=== PATIENT | male | born 1965 | race Asian ===

== ENCOUNTER → 2018-06-24 | Outpatient (CLI) | payer MEDICAID ==
[~2018-06-24] VITALS: Ht 160 cm; Wt 101.2 kg
[~2018-06-24] MED LIST: ASPI81 PO; CILO100T PO; FURO40 PO; METF-960 PO; METO50 PO
[2018-06-24 10:20] VITALS: BP 120/71
[2018-06-24 12:39] LABS: ALBUMIN 2.7 g/dL (3.4-5.0); BILIRUBIN,TOTAL 0.2 mg/dL (0.1-1.0); CALCIUM, TOTAL 9.3 mg/dL (8.8-10.5); CREATININE 1.64 mg/dL (0.60-1.30); TOTAL PROTEIN, SERUM 7.1 g/dL (6.4-8.2)
[2018-06-24 12:53] LABS: HEMOGLOBIN A1C 6.4 % (4.5-6.2)
== END | disposition home or self-care (01) ==
LOC: HBOWC 10:09
PROVIDERS: ATTEND Nurse Practitioner Adult Health
DX: E11.621 Type 2 diabetes mellitus with foot ulcer (principal); L97.529 Non-pressure chronic ulcer of other part of left foot with unspecified severity; E11.52 Type 2 diabetes mellitus with diabetic peripheral angiopathy with gangrene
CPT/HCPCS: 83036; 87070; 87205

== ENCOUNTER → 2018-06-28 | Outpatient (CLI) | payer MEDICAID | END | disposition home or self-care (01) | LOC: RADPV 08:22 | PROVIDERS: ATTEND Nurse Practitioner Adult Health | DX: M77.32 Calcaneal spur, left foot (principal); E11.621 Type 2 diabetes mellitus with foot ulcer; E11.52 Type 2 diabetes mellitus with diabetic peripheral angiopathy with gangrene; L97.528 Non-pressure chronic ulcer of other part of left foot with other specified severity | CPT/HCPCS: 93925; 93970 ==

== ENCOUNTER → 2018-07-01 | Outpatient (CLI) | payer MEDICAID ==
[2018-07-01 10:23] VITALS: BP 123/73
== END | disposition home or self-care (01) ==
LOC: HBOWC 09:43
PROVIDERS: ATTEND Nurse Practitioner Adult Health
DX: E11.621 Type 2 diabetes mellitus with foot ulcer (principal); L97.522 Non-pressure chronic ulcer of other part of left foot with fat layer exposed; E11.52 Type 2 diabetes mellitus with diabetic peripheral angiopathy with gangrene; I96 Gangrene, not elsewhere classified; E11.40 Type 2 diabetes mellitus with diabetic neuropathy, unspecified; L60.2 Onychogryphosis; I11.0 Hypertensive heart disease with heart failure; I50.9 Heart failure, unspecified; I87.2 Venous insufficiency (chronic) (peripheral); L90.9 Atrophic disorder of skin, unspecified; I25.2 Old myocardial infarction; H54.62 Unqualified visual loss, left eye, normal vision right eye; Z86.73 Personal history of transient ischemic attack (TIA), and cerebral infarction without residual deficits; Z79.84 Long term (current) use of oral hypoglycemic drugs; Z79.82 Long term (current) use of aspirin
CPT/HCPCS: 97597

== ENCOUNTER → 2018-07-15 | Outpatient (CLI) | payer MEDICAID ==
[2018-07-15 13:17] VITALS: BP_SYST 105; BP_SYST 145; BP_DIAS 44; BP_DIAS 79
== END | disposition home or self-care (01) ==
LOC: HBOWC 10:25
PROVIDERS: ATTEND Nurse Practitioner Adult Health
DX: E11.621 Type 2 diabetes mellitus with foot ulcer (principal); L97.522 Non-pressure chronic ulcer of other part of left foot with fat layer exposed; I87.2 Venous insufficiency (chronic) (peripheral); E11.52 Type 2 diabetes mellitus with diabetic peripheral angiopathy with gangrene; I96 Gangrene, not elsewhere classified; E11.40 Type 2 diabetes mellitus with diabetic neuropathy, unspecified; L90.9 Atrophic disorder of skin, unspecified; L60.2 Onychogryphosis; I25.2 Old myocardial infarction; I11.0 Hypertensive heart disease with heart failure; I50.9 Heart failure, unspecified; H54.62 Unqualified visual loss, left eye, normal vision right eye; Z79.84 Long term (current) use of oral hypoglycemic drugs; Z79.82 Long term (current) use of aspirin; Z86.73 Personal history of transient ischemic attack (TIA), and cerebral infarction without residual deficits
CPT/HCPCS: 97597

== ENCOUNTER → 2018-07-22 | Outpatient (CLI) | payer MEDICAID ==
[~2018-07-22] MED LIST changes: +BACTDSB PO
[2018-07-22 11:07] VITALS: BP 130/79
== END | disposition home or self-care (01) ==
LOC: HBOWC 10:35
PROVIDERS: ATTEND Nurse Practitioner Adult Health
DX: E11.621 Type 2 diabetes mellitus with foot ulcer (principal); L97.522 Non-pressure chronic ulcer of other part of left foot with fat layer exposed; I87.2 Venous insufficiency (chronic) (peripheral); E11.52 Type 2 diabetes mellitus with diabetic peripheral angiopathy with gangrene; I96 Gangrene, not elsewhere classified; E11.40 Type 2 diabetes mellitus with diabetic neuropathy, unspecified; L90.9 Atrophic disorder of skin, unspecified; L60.2 Onychogryphosis; I25.2 Old myocardial infarction; I11.0 Hypertensive heart disease with heart failure; I50.9 Heart failure, unspecified; H54.62 Unqualified visual loss, left eye, normal vision right eye; Z79.84 Long term (current) use of oral hypoglycemic drugs; Z79.82 Long term (current) use of aspirin; Z86.73 Personal history of transient ischemic attack (TIA), and cerebral infarction without residual deficits
CPT/HCPCS: 87070; 87205; 97597

== ENCOUNTER 2020-07-02 10:26 | Emergency (ER) | payer MEDICAID ==
[~2020-07-02] VITALS: Ht 177.8 cm; Wt 104.6 kg
[~2020-07-02 10:26] MED LIST changes: +ASPI-1450 PO; -ASPI81 PO
[2020-07-02] MEDS ORDERED: IOVERSOL 350 MG/ML 100 ML VIAL ONE ×2 (10:53→11:11)
[2020-07-02] MEDS ORDERED: HydrALAZINE HCL 20 MG/ML VIAL ONE (10:56)
[2020-07-02 10:58] LABS: BASOPHILS % (AUTO) 1.3 % (0.0-2.0); EOSINOPHILS % (AUTO) 2.7 % (1.0-6.0); HEMATOCRIT 34.2 % (41-53); HEMOGLOBIN 11.2 g/dL (13.5-17.5); LYMPHOCYTES # (AUTO) 3.2 K/uL (1.0-4.8); LYMPHOCYTES % (AUTO) 23.8 % (22.0-44.0); MEAN CORPUSCULAR HGB CONC 32.8 G/dL (31.0-37.0); MEAN CORPUSCULAR VOLUME 89 fL (80-100); MONOCYTES # (AUTO) 1.1 K/uL (0.1-1.0); MONOCYTES % (AUTO) 8.1 % (2.0-9.0); NEUTROPHILS # (AUTO) 8.5 K/uL (1.8-7.7); NEUTROPHILS % (AUTO) 64.1 % (40.0-70.0); PLATELET COUNT (AUTO) 358 K/uL (150-450); RED BLOOD CELL COUNT(AUTO) 3.86 MIL/uL (4.50-5.90); RED CELL DISTRIBUTION WIDTH 13.9 % (11.5-14.5)
[2020-07-02] MEDS ORDERED: HydrALAZINE HCL 20 MG/ML VIAL IVP ONE ×2 (11:00→11:15)
[2020-07-02] MEDS ORDERED: ALTEPLASE PER STROKE PROTOCOL CLINICAL ONE (11:00)
[2020-07-02 11:07] LABS: CALCIUM, TOTAL 8.4 mg/dL (8.8-10.5); CREATININE 3.2 mg/dL (0.60-1.30); POTASSIUM 5.3 mmol/L (3.5-5.1)
[2020-07-02] MEDS ORDERED: SODIUM CHLORIDE 0.9% 100 ML ONE (11:11)
[2020-07-02 11:13] LABS: BILIRUBIN,TOTAL 0.2 mg/dL (0.1-1.0); INR 0.9 (0.9-1.1); PROTHROMBIN TIME 10.1 SEC (9.4-11.6); TOTAL PROTEIN, SERUM 6.5 g/dL (6.4-8.2)
[2020-07-02] MEDS ORDERED: LABETALOL HCL 5 MG/ML 20 ML VIAL IVP ONE ×4 (11:20→12:00)
[2020-07-02 11:23] LABS: B-TYPE NATRIURETIC PEPTIDE 643 pg/mL (0-100)
[2020-07-02] MEDS ORDERED: ALTEPLASE 81 MG in WATER FOR INJECTION,STERILE 81 ML IV ONE (11:30)
[2020-07-02] MEDS ORDERED: ALTEPLASE 9 MG in WATER FOR INJECTION,STERILE 9 ML IV ONE (11:30)
[2020-07-02] MEDS ORDERED: NiCARDipine HCL 25 MG in DEXTROSE 5%-WATER 240 ML IV PRN (11:45)
[2020-07-02 12:07] VITALS: BP 195/101
[2020-07-02 13:05] LABS: COVID AG,FIA SOURCE NASOPHARYNGEAL
== END 2020-07-02 12:55 | disposition designated cancer center or children's hospital (05) ==
LOC: EMS 10:26
DX: I63.9 Cerebral infarction, unspecified (principal); Z20.822 Contact with and (suspected) exposure to COVID-19; Z79.82 Long term (current) use of aspirin; Z79.84 Long term (current) use of oral hypoglycemic drugs; Z79.899 Other long term (current) drug therapy
CPT/HCPCS: 36415; 37195; 70450; 70496; 71045; 80053; 83880; 84484; 85025; 85610; 85730; 86850; 86900; 86901; 87426; 93005; 96374; 96375; 96376; 99291; G0480; J0360; J2997; J3490 ×2; J7050; J7060; Q9967